=== PATIENT | male | born 1990 | race American Indian/Alaskan Native ===

== ENCOUNTER 2021-09-21 18:05 | Emergency (ER) | payer MEDICAID ==
[2021-09-21 18:19] VITALS: BP 135/99
--- NOTE | 2021-09-21 18:21 | Emergency Department Report ---
ED ENT HPI - General Chief complaint: Dental/Oral Stated complaint: TOOTHACHE AND FACIAL PAIN Time Seen by Provider: 09/21/21 18:09 Source: patient Mode of arrival: Ambulatory Limitations: No Limitations - History of Present Illness Initial comments: Patient is a 31-year-old male presents emergency room complaints of left lower dental pain that began yesterday. Patient states that they noticed swelling today. Patient states that they last saw a dentist 3 months ago and was advised that they need 5 teeth pulled. Patient states that he was placed on antibiotics and he was not able to follow-up as he reports the dentist was booked up. Patient denies any fever, vomiting, chills, difficulty swallowing, difficulty breathing. No past medical history. No allergies to medications. - Related Data Previous Rx's Medication Instructions Recorded Last Taken Type Chlorhexidine Mouthwash [Peridex] 15 ml MM BID #1 bottle 09/21/21 Unknown Rx Naproxen 375 mg PO BID PRN #14 tablet 09/21/21 Unknown Rx Penicillin V Potassium 500 mg PO QID 7 Days #28 tablet 09/21/21 Unknown Rx Allergies Allergy/AdvReac Type Severity Reaction Status Date / Time No Known Allergies Allergy Unverified 09/21/21 18:07 ED Dental HPI - General Chief complaint: Dental/Oral Stated complaint: TOOTHACHE AND FACIAL PAIN Time Seen by Provider: 09/21/21 18:09 Source: patient Mode of arrival: Ambulatory Limitations: No Limitations - Related Data Previous Rx's Medication Instructions Recorded Last Taken Type Chlorhexidine Mouthwash [Peridex] 15 ml MM BID #1 bottle 09/21/21 Unknown Rx Naproxen 375 mg PO BID PRN #14 tablet 09/21/21 Unknown Rx Penicillin V Potassium 500 mg PO QID 7 Days #28 tablet 09/21/21 Unknown Rx Allergies Allergy/AdvReac Type Severity Reaction Status Date / Time No Known Allergies Allergy Unverified 09/21/21 18:07 ED Review of Systems ROS: Stated complaint: TOOTHACHE AND FACIAL PAIN Other details as noted in HPI Comment: All other systems reviewed and negative ED Past Medical Hx - Medications Home Medications: Home Medications Medication Instructions Recorded Confirmed Last Taken Type Chlorhexidine Mouthwash [Peridex] 15 ml MM BID #1 bottle 09/21/21 Unknown Rx Naproxen 375 mg PO BID PRN #14 tablet 11/20/21 Unknown Rx Penicillin V Potassium 500 mg PO QID 7 Days #28 tablet 09/21/21 Unknown Rx ED Physical Exam - General Limitations: No Limitations General appearance: alert, in no apparent distress - Head Head exam: Present: atraumatic, normocephalic - Eye Eye exam: Present: normal appearance - ENT ENT exam: Present: mucous membranes moist, other (dental carry to the left lower gumline, there is associated edema present to the left lower gumline, uvula is midline, no uvular edema or deviation, no trismus, no tongue elevation, no muffled voice, no submandibular edema) ED Course Vital Signs 09/21/21 18:08 Temperature 99.7 F H Pulse Rate 78 Respiratory 20 Rate Blood Pressure 135/99 O2 Sat by Pulse 98 Oximetry ED Medical Decision Making - Medical Decision Making Patient is a 31-year-old male presents emergency room complaints of left lower dental pain that began yesterday. Patient states that they noticed swelling today. Patient states that they last saw a dentist 3 months ago and was advised that they need 5 teeth pulled. Patient states that he was placed on antibiotics and he was not able to follow-up as he reports the dentist was booked up. Patient denies any fever, vomiting, chills, difficulty swallowing, difficulty breathing. No past medical history. No allergies to medications. vss. on exam: dental carry to the left lower gumline, there is associated edema present to the left lower gumline, uvula is midline, no uvular edema or deviation, no trismus, no tongue elevation, no muffled voice, no submandibular edema. Examination appears consistent with dental abscess. No signs of facial abscess, facial cellulitis, or Fredi's at this time. advised pt Please take medication as prescribed. Follow-up with a dentist. Return to emergency room for any new or symptoms. Critical care attestation.: If time is entered above; I have spent that time in minutes in the direct care of this critically ill patient, excluding procedure time. ED Disposition Clinical Impression: Dental caries, Dental abscess Disposition: 01 HOME / SELF CARE / HOMELESS Is pt being admited?: No Does the pt Need Aspirin: No Condition: Stable Instructions: Dental Abscess Additional Instructions: Please take medication as prescribed. Follow-up with a dentist. Return to emergency room for any new or symptoms. Prescriptions: Naproxen 375 mg PO BID PRN #14 tablet PRN Reason: pain Penicillin V Potassium 500 mg PO QID 7 Days #28 tablet Chlorhexidine Mouthwash [Peridex] 15 ml MM BID #1 bottle Referrals: [facility] [Outside] - 2-3 Days [facility] [Outside] - 2-3 Days Time of Disposition: 18:20 Print Language: BERMUDIAN
== END 2021-09-21 18:35 | disposition home or self-care (01) ==
LOC: ED 18:05
DX: K02.9 Dental caries, unspecified (principal); K04.7 Periapical abscess without sinus
CPT/HCPCS: 99281